=== PATIENT | male | born 1945 | race Caucasian/White ===

== ENCOUNTER 2020-12-28 09:25 | Outpatient (CLI) | payer OTHER, SELFPAY ==
--- NOTE | 2020-12-28 10:15 | USCV_ITS ---
Luis Narvaez Age: 75 Gender: M : 1945 Exam Date: 12/28/2020 09:47 Ordering Phys: Jensen Burt MD (Andy) ([email or web address]) Technologist: Lana Durand [place]am Location[place] [facility] [place]: AAA HISTORY: Diameter (cm) AP x Transverse x Length Velocity (cm/s) Waveform Prox Aorta: 1.78 x 1.82 x 100.90 Biphasic Mid Aorta: 1.76 x 2.10 x 84.80 Monophasic Distal Aorta: 3.57 x 3.25 x 62.00 Biphasic Right Iliac Prox: 1.28 x 1.52 x 77.70 Biphasic Left Iliac Prox: 0.93 x 1.09 x 174.30 Biphasic Stent Prox Landing x x Aneurysmal Sac Max x x Lt Lat Sac Dim Rt Lat Sac Dim Stent Dist Landing x x Right Iliac Stent x x Left Iliac Stent x x Right Renal Art Left Renal Art FINDINGS: Fusiform dilatation of the infrarenal abdominal aorta. Moderate diffuse irregular plaques in the abdominal aorta CONCLUSIONS Fusiform aneurysm of the infrarenal abdominal aorta measuring 3.57 x 3.25 cm. Moderate diffuse dense irregular plaques in the abdominal aorta. No similar previous studies are available for comparison Dr Bill Lala MD [facility] (Electronically Signed) Final Date: 29 December 2020 07:57 S
== END 2020-12-28 09:26 | disposition home or self-care (01) ==
LOC: US 09:26
PROVIDERS: PCP Family Medicine; Visit Provider Thoracic Surgery (Cardiothoracic Vascular Surgery)
DX: I71.4 Abdominal aortic aneurysm, without rupture (principal)
CPT/HCPCS: 93978

== ENCOUNTER 2021-09-14 09:48 | Outpatient (CLI) | payer OTHER, SELFPAY ==
--- NOTE | 2021-09-14 10:00 | CT_ITS ---
WS: [id number] CT ANGIOGRAPHY abdomen and pelvis HISTORY: I71.4 - Abdominal aortic aneurysm, without rupture TECHNIQUE: CT angiogram is performed during IV injection. Reformation images reviewed. All CT scans a [employer] use at least one of these dose optimization techniques: automated exposure contro l; mA and/or kV adjustment per patient size (includes targeted exams where dose is matched to clinica l indication); or iterative reconstruction. CONTRAST: Visipaque 320; 95 mL IV. DLP: 908.10 mGy.cm COMPARISON: Ultrasound 12/28/2020 Lung bases are clear. Normal size heart. Small hiatal hernia. Abdominal aorta: Scattered atherosclerotic plaque and intimal thickening throughout the aorta. Begins several centimeters below the renal arteries is a fusiform aneurysm extending over length of 4.3 cm. Maximum transverse diameter 3.6 cm x 3.6 cm. Aneurysm tapers normally at the bifurcation. There is v yessica little narrowing of the lumen due to plaque. Superior mesenteric artery and the celiac axis are w ell visualized and normally enhancing. No significant atherosclerosis of either renal artery. Only si ngle renal arteries are identified. GIO is patent also. Bilateral common iliac arteries contain mild scattered calcified plaque and intimal thickening. Internal and external iliac arteries are patent. N o areas of high-grade stenosis to the femoral arteries. Arterial enhancement of the liver, spleen and pancreas are as expected. No hypervascular mass identif ied. Gallbladder is mildly contracted. Mild bilateral thickening of each adrenal gland from hyperplas ia. Kidneys are normal size with normal enhancement. No adenopathy or ascites. No GI tract abnormality. There are a few diverticula in the descending and sigmoid colon without acute diverticulitis. Normal appendix. No osseous abnormalities. CT/CT angio abdomen pelvis [id number] IMPRESSION: 1. Infrarenal abdominal aortic aneurysm measuring 3.6 x 3.6 cm and extends ove r length of 4.3 cm. As compared to an abdominal aortic ultrasound from 12/28/2020 there has been minimal increase in size. 2. Mild atherosclerotic plaque and intimal thickening with no luminal stenosis .
[2021-09-14] MEDS: iodixanol 320 mg/mL 100mL Btl IV (10:16)
[2021-09-14 10:24] LABS: Blood Urea Nitrogen 14 mg/dL (8-23)
== END 2021-09-14 09:49 | disposition home or self-care (01) ==
LOC: RAD 09:48
PROVIDERS: PCP Family Medicine; Visit Provider Thoracic Surgery (Cardiothoracic Vascular Surgery)
DX: I71.4 Abdominal aortic aneurysm, without rupture (principal)
CPT/HCPCS: 74174; 82565; 84520

== ENCOUNTER → 2021-09-22 09:06 | Outpatient (BNVA) | payer OTHER, SELFPAY | PROVIDERS: PCP Family Medicine; Visit Provider Thoracic Surgery (Cardiothoracic Vascular Surgery) | DX: I71.4 Abdominal aortic aneurysm, without rupture (principal); F17.210 Nicotine dependence, cigarettes, uncomplicated | CPT/HCPCS: 99213 ==